=== PATIENT | male | born 1995 | race Caucasian/White ===

== ENCOUNTER 2021-10-08 17:55 | Emergency (ER) | payer OTHER ==
[~2021-10-08 17:55] MED LIST: TAMIFLU75 MG PO
[2021-10-08 19:09] LABS: HEMOGLOBIN 15.6 gm/dl (14.0-17.5); RED BLOOD COUNT 4.96 M/UL (4.20-5.50); WHITE BLOOD COUNT 8.3 K/UL (4.5-11.0)
[2021-10-08 19:24] LABS: BUN/CREATININE RATIO 17 (0-10)
[2021-10-08] MEDS ORDERED: MIRALAX17 GM PO (23:08)
== END 2021-10-08 23:10 | disposition home or self-care (01) ==
LOC: ER1 17:55
PROVIDERS: Physician Assistant
DX: K59.00 Constipation, unspecified (principal); F17.210 Nicotine dependence, cigarettes, uncomplicated; Z88.1 Allergy status to other antibiotic agents
CPT/HCPCS: 74018; 80053; 83690; 85025; 99284; Q9967